=== PATIENT | male | born 1950 | race Asian ===

== ENCOUNTER 2019-02-07 20:11 | Inpatient (IN) | payer BC ==
[~2019-02-07] VITALS: Ht 180.3 cm; Wt 65.4 kg
[~2019-02-07 20:11] MED LIST: CEFT1FRO2 IV; CEFT2FRO2 IV; FERR-55 PO; GLIP5TAB13 PO; HYDR1CAP18 PO; HYDR25TA6 PO; LACTINEX PO; METO-448 PO; SITA50TA2 PO
[2019-02-07] MEDS ORDERED: SODIUM CHLORIDE 0.9% 1L BAG IV* STA (20:26)
[2019-02-07] MEDS ORDERED: ACETAMINOPHEN 325 MG TAB PO STA (20:26)
[2019-02-07] MEDS ORDERED: CEFTRIAXONE 1 GM/50 ML (PMX) 50 ML IVPB STA (20:26)
[2019-02-07] MEDS ORDERED: PIPER-TAZO 3.375 GM IV (PMX) 100 ML IVPB STA (20:27)
[2019-02-07] MEDS ORDERED: VANCOMYCIN 1 GM (PMX) 250 ML IVPB ONE (20:30)
[2019-02-07] MEDS ORDERED: ONDANSETRON 4 MG INJ IV PRN (22:00)
[2019-02-07] MEDS ORDERED: ACETAMINOPHEN 325 MG TAB PO PRN (22:00)
[2019-02-08 00:14] VITALS: BP 146/74; PULSE 92; RESP 19
[2019-02-08 00:25] VITALS: Ht 180.3 cm; Wt 65.4 kg
[2019-02-08] MEDS ORDERED: ONDANSETRON 4 MG INJ IV PRN (01:00)
[2019-02-08] MEDS ORDERED: ALBUTEROL/IPRATROPIUM (NEB) 3 ML AMP HHN PRN (01:00)
[2019-02-08] MEDS ORDERED: HYDROCODONE/APAP (5/325) TAB PO PRN ×2 (01:00)
[2019-02-08] MEDS ORDERED: NACL 0.9% 3 ML SYG IV SCH (01:00)
[2019-02-08] MEDS: SOD CHLORIDE 0.9% 1,000 ML IV SCH ×4 (01:00→23:00)
[2019-02-08 02:00] VITALS: BP_SYST 143; BP_SYST 146; BP_DIAS 68; BP_DIAS 70; PULSE 57; PULSE 86; RESP 18
[2019-02-08] MEDS: ACETAMINOPHEN 325 MG TAB PO PRN (06:22)
[2019-02-08 07:55] VITALS: BP 120/60; PULSE 89; RESP 16
[2019-02-08] MEDS ORDERED: VANCOMYCIN IV PER PHARMACY XX SCH (09:00)
[2019-02-08] MEDS: CEFEPIME 1GM/50 ML (PMX) 50 ML IVPB SCH ×2 (09:03→20:40)
[2019-02-08] MEDS: HEPARIN 5,000 UNIT/1 ML VIAL SC SCH ×2 (09:04→20:40)
[2019-02-08] MEDS ORDERED: GLUCOSE GEL 15 GRAM TUBE BUCCAL PRN (12:00)
[2019-02-08] MEDS ORDERED: GLUCAGON 1 MG INJ IM PRN (12:00)
[2019-02-08] MEDS ORDERED: GLUCOSE GEL 15 GRAM TUBE PO PRN ×2 (12:00)
[2019-02-08] MEDS ORDERED: DEXTROSE 50% 50 ML SYRINGE IV PRN ×2 (12:00)
[2019-02-08] MEDS: INSULIN GLARGINE [LANTus] (100 UNITS/ML) SYG SC SCH (12:34)
[2019-02-08] MEDS: INSULIN ASPART [NOVOLOG] 3 ML PEN SC SCH ×3 (12:45→20:40)
[2019-02-08 14:19] VITALS: BP 166/83; PULSE 94; RESP 18
[2019-02-08 20:52] VITALS: BP 145/71; PULSE 93; RESP 18
[2019-02-08] MEDS: VANCOMYCIN 750 MG (PMX) 250 ML IVPB SCH (21:32)
[2019-02-09] MEDS: ACCU-CHEK XX SCH (02:00)
[2019-02-09 02:52] VITALS: BP 152/70; PULSE 89; RESP 18
[2019-02-09] MEDS: SOD CHLORIDE 0.9% 1,000 ML IV SCH ×2 (06:51→13:26)
[2019-02-09] MEDS: INSULIN ASPART [NOVOLOG] 3 ML PEN SC SCH ×4 (08:00→20:58)
[2019-02-09 08:08] VITALS: BP_SYST 15; BP_SYST 159; BP_DIAS 78; PULSE 80; RESP 19
[2019-02-09] MEDS: CEFEPIME 1GM/50 ML (PMX) 50 ML IVPB SCH ×2 (08:48→22:46)
[2019-02-09] MEDS: INSULIN GLARGINE [LANTus] (100 UNITS/ML) SYG SC SCH (08:49)
[2019-02-09] MEDS: HEPARIN 5,000 UNIT/1 ML VIAL SC SCH ×2 (08:50→20:57)
[2019-02-09] MEDS ORDERED: SOD CHLORIDE 0.9% 500 ML IV ONE (11:00)
[2019-02-09 14:00] VITALS: BP 179/88; PULSE 89; RESP 18
[2019-02-09] MEDS: hydrALAzine 20 MG INJ IV PRN (15:00)
[2019-02-09 15:03] VITALS: BP 188/90; PULSE 87; RESP 18
[2019-02-09 15:32] VITALS: BP 145/68; PULSE 90
[2019-02-09 20:00] VITALS: BP 142/68; PULSE 96; RESP 18
[2019-02-09] MEDS: ACETAMINOPHEN 325 MG TAB PO PRN (20:38)
[2019-02-09] MEDS: VANCOMYCIN 750 MG (PMX) 250 ML IVPB SCH (20:40)
[2019-02-10 02:00] VITALS: BP 145/69; PULSE 78; RESP 17
[2019-02-10] MEDS: ACCU-CHEK XX SCH (02:00)
[2019-02-10] MEDS: SOD CHLORIDE 0.9% 1,000 ML IV SCH ×2 (02:19→12:21)
[2019-02-10 08:00] VITALS: BP 145/87; PULSE 90; RESP 20
[2019-02-10] MEDS: INSULIN ASPART [NOVOLOG] 3 ML PEN SC SCH ×4 (08:00→20:22)
[2019-02-10] MEDS: INSULIN GLARGINE [LANTus] (100 UNITS/ML) SYG SC SCH (08:46)
[2019-02-10] MEDS: HEPARIN 5,000 UNIT/1 ML VIAL SC SCH ×2 (08:47→20:22)
[2019-02-10] MEDS: CEFEPIME 1GM/50 ML (PMX) 50 ML IVPB SCH (08:50)
[2019-02-10] MEDS: CEFTRIAXONE 2 GM/50 ML (PMX) 50 ML IVPB SCH (13:31)
[2019-02-10 14:00] VITALS: BP 164/81; PULSE 100; RESP 18
[2019-02-10 20:00] VITALS: BP 198/95; PULSE 92; RESP 18
[2019-02-10] MEDS: hydrALAzine 20 MG INJ IV PRN (20:21)
[2019-02-10 22:00] VITALS: BP 159/77; PULSE 85
[2019-02-11 02:00] VITALS: BP 182/83; PULSE 94; RESP 19
[2019-02-11] MEDS: ACCU-CHEK XX SCH (02:00)
[2019-02-11] MEDS: SOD CHLORIDE 0.9% 1,000 ML IV SCH (02:27)
[2019-02-11] MEDS: hydrALAzine 20 MG INJ IV PRN (02:28)
[2019-02-11 04:00] VITALS: BP 132/63; PULSE 99
[2019-02-11 08:00] VITALS: BP 153/80; PULSE 94; RESP 18
[2019-02-11] MEDS: INSULIN ASPART [NOVOLOG] 3 ML PEN SC SCH ×2 (08:00→11:57)
[2019-02-11] MEDS: INSULIN GLARGINE [LANTus] (100 UNITS/ML) SYG SC SCH (08:27)
[2019-02-11] MEDS: HEPARIN 5,000 UNIT/1 ML VIAL SC SCH (08:28)
[2019-02-11] MEDS: CEFTRIAXONE 2 GM/50 ML (PMX) 50 ML IVPB SCH (12:12)
[2019-02-11 14:00] VITALS: BP 158/80; PULSE 100; RESP 18
== END 2019-02-11 16:58 | disposition home health service (06) | DRG 872 ==
LOC: E/R 20:11 → 5EC 21:59
PROVIDERS: ADMIT Internal Medicine; ATTEND Internal Medicine
DX: A41.9 Sepsis, unspecified organism (principal); N17.9 Acute kidney failure, unspecified; E87.1 Hypo-osmolality and hyponatremia; M86.671 Other chronic osteomyelitis, right ankle and foot; E11.8 Type 2 diabetes mellitus with unspecified complications; E11.22 Type 2 diabetes mellitus with diabetic chronic kidney disease; I12.9 Hypertensive chronic kidney disease with stage 1 through stage 4 chronic kidney disease, or unspecified chronic kidney disease; N18.9 Chronic kidney disease, unspecified; D64.9 Anemia, unspecified; E78.5 Hyperlipidemia, unspecified; Z79.4 Long term (current) use of insulin; Z89.421 Acquired absence of other right toe(s)
CPT/HCPCS: 36415; 71045; 76775; 80048; 80053; 80061; 81001; 82436; 82962; 83036; 83605; 83735; 84100; 84133; 84300; 84484; 85025; 85610; 85730; 87086; 87400; 87430; 87880; 93005; 93306; 96365; 96368; 96375; J0360; J0692; J0696; J1644; J1815; J2543; J3370; J7030; J7040

== ENCOUNTER 2019-02-15 10:57 | Emergency (ER) | payer BC ==
[~2019-02-15] VITALS: Wt 65.0 kg
[~2019-02-15 10:57] MED LIST changes: -CEFT1FRO2 IV
[2019-02-15 12:57] VITALS: BP 181/94; PULSE 92; RESP 20
[2019-02-15] MEDS ORDERED: NICARDipine HCL 30 MG CAPSULE PO ONE (13:00)
== END 2019-02-15 13:00 | disposition home or self-care (01) ==
LOC: E/R 10:57
DX: I10 Essential (primary) hypertension (principal); E11.9 Type 2 diabetes mellitus without complications; Z79.84 Long term (current) use of oral hypoglycemic drugs
CPT/HCPCS: 99283